=== PATIENT | female | born 1965 | race Hispanic/Latino ===

== ENCOUNTER 2022-05-31 17:52 | Inpatient (IN) | payer OTHER ==
[~2022-05-31] VITALS: Ht 149.9 cm; Wt 57.2 kg
[~2022-05-31 17:52] MED LIST: CEFD300C3 PO
[2022-05-31 18:45] LABS: BASOPHILS % (AUTO) 0.2 % (0.0-5.0); EOSINOPHILS % (AUTO) 0.2 % (0.0-8.0); HEMATOCRIT 37.5 % (36-48); LYMPHOCYTES % (AUTO) 4.2 % (21.0-51.0); MEAN CORPUSCULAR HEMOGLOBIN 31.4 pg (27.0-33.0); MEAN CORPUSCULAR HGB CONC 33.3 g/dL (32.0-36.0); MEAN CORPUSCULAR VOLUME 94.2 fL (79-99); NEUTROPHILS % (AUTO) 90.9 % (40.0-77.0); PLATELET COUNT (AUTO) 262 K/uL (130-400); RED BLOOD CELL COUNT(AUTO) 3.98 MIL/uL (4.00-5.50); RED CELL DISTRIBUTION WIDTH 12.8 % (11.0-15.5); WHITE BLOOD COUNT (AUTO) 18.1 K/uL (4.8-10.8)
[2022-05-31 18:55] LABS: CREATININE 0.9 mg/dL (0.5-1.5); POTASSIUM 3.9 mmol/L (3.5-5.1)
[2022-05-31 19:16] LABS: ALBUMIN 3.3 g/dL (3.5-5.0); TOTAL PROTEIN, SERUM 7.2 g/dL (6.0-8.3)
[2022-05-31 20:24] LABS: APPEARANCE,URINE CLEAR (CLEAR); BILIRUBIN,URINE NEGATIVE (NEGATIVE); COLOR,URINE YELLOW (YELLOW); GLUCOSE, URINE (UA) NEGATIVE (NEGATIVE); KETONES,URINE 40 mg/dL (NEGATIVE); LEUKOCYTE ESTERASE ,URINE 250 Leu/uL (NEGATIVE); NITRATE,URINE NEGATIVE (NEGATIVE); OCCULT BLOOD,URINE SMALL (NEGATIVE); PH,URINE 6.5 (5.0-8.0); PROTEIN,URINE 30 mg/dL (NEGATIVE); UROBILINOGEN,URINE 0.2 mg/dL (0.2-1.0)
[2022-05-31 20:29] LABS: BACTERIA,URINE RARE /HPF (None Seen); SQUAMOUS EPITHELIAL CELL,UR RARE /HPF (0-2); WBC,URINE 26-50 /HPF (0-1)
[2022-05-31] MEDS ORDERED: ONDANSETRON 4MG INJ IVP ONE (20:30)
[2022-05-31] MEDS ORDERED: 0.9%NACL 1000ML 1,000 ML IV SCH ×2 (20:30→23:00)
[2022-05-31] MEDS ORDERED: MORPHINE 4 MG SYG IVP ONE (20:30)
[2022-05-31] MEDS ORDERED: ACETAMINOPHEN 325 MG TAB PO PRN (23:00)
[2022-05-31] MEDS ORDERED: ONDANSETRON 4MG INJ IVP PRN (23:00)
[2022-05-31] MEDS ORDERED: LEVOFLOXACIN 500 MG/D5W 100 ML 100 ML IV SCH (23:00)
[2022-05-31] MEDS ORDERED: MORPHINE 2 MG SYG IVP PRN (23:00)
[2022-06-01] MEDS ORDERED: MORPHINE 2 MG SYG IVP PRN ×2 (05:00→09:00)
[2022-06-01] MEDS ORDERED: METRONIDAZOLE 250MG/50ML 50 ML IV SCH (06:00)
[2022-06-01] MEDS: LACTATED RINGERS 1000ML 1,000 ML IV SCH ×2 (08:29→17:06)
[2022-06-01] MEDS: FAMOTIDINE 20MG VIAL IV SCH ×2 (08:29→20:07)
[2022-06-01 08:45] VITALS: BP 142/73
[2022-06-01] MEDS ORDERED: TAMSULOSIN HCL 0.4 MG CAP.ER.24H PO SCH (09:00)
[2022-06-01] MEDS ORDERED: PANTOPRAZOLE 40 MG/VIAL IVP SCH (09:00)
[2022-06-01] MEDS ORDERED: ENOXAPARIN SODIUM 40 MG/0.4 ML SYRINGE SQ SCH (09:00)
[2022-06-01] MEDS ORDERED: ONDA-104 PO (09:02)
[2022-06-01] MEDS ORDERED: FLUO40CA49 PO (09:02)
[2022-06-01] MEDS ORDERED: ALPR0.5T8 PO (09:02)
[2022-06-01] MEDS ORDERED: CEFU500T67 PO (09:02)
[2022-06-01] MEDS ORDERED: TAMS-1 PO (09:02)
[2022-06-01] MEDS ORDERED: BUSP15TA3 PO (09:02)
[2022-06-01] MEDS: MEROPENEM 500 MG VIAL IVP SCH ×2 (09:30→17:05)
[2022-06-01] MEDS: ALPRAZOLAM 0.25 MG TABLET PO PRN ×2 (09:30→20:07)
[2022-06-01 09:34] LABS: BASOPHILS % (AUTO) 0.2 % (0.0-5.0); EOSINOPHILS % (AUTO) 0.1 % (0.0-8.0); HEMATOCRIT 37.1 % (36-48); LYMPHOCYTES % (AUTO) 9.1 % (21.0-51.0); MEAN CORPUSCULAR HEMOGLOBIN 31.4 pg (27.0-33.0); MEAN CORPUSCULAR HGB CONC 32.6 g/dL (32.0-36.0); MEAN CORPUSCULAR VOLUME 96.4 fL (79-99); MONOCYTES % (AUTO) 4.7 % (3.0-13.0); NEUTROPHILS % (AUTO) 85.2 % (40.0-77.0); PLATELET COUNT (AUTO) 250 K/uL (130-400); RED BLOOD CELL COUNT(AUTO) 3.85 MIL/uL (4.00-5.50); RED CELL DISTRIBUTION WIDTH 12.7 % (11.0-15.5); WHITE BLOOD COUNT (AUTO) 15.8 K/uL (4.8-10.8)
[2022-06-01 09:45] LABS: INR 1.02 (0.85-1.15); PROTHROMBIN TIME 11.1 SEC (9.6-11.6)
[2022-06-01 09:50] LABS: HEMOGLOBIN A1C 5.5 % (4.0-6.0)
[2022-06-01 10:38] LABS: CARBON DIOXIDE 22 mmol/L (21-32); CHLORIDE 103 mmol/L (101-111); CREATININE 0.6 mg/dL (0.5-1.5); GLOMERULAR FILTR. RATE CALC 109 mL/min (>60); GLUCOSE,RANDOM 91 mg/dL (70-105); POTASSIUM 3.7 mmol/L (3.5-5.1); SODIUM SERUM 138 mmol/L (136-145); UREA NITROGEN, BLOOD 10 mg/dL (7-18)
[2022-06-01 10:48] LABS: ASPARTATE AMINOTRANSFERASE 505 U/L (10-37); TOTAL PROTEIN, SERUM 6.9 g/dL (6.0-8.3)
[2022-06-01 10:55] LABS: SALICYLATE < 2.8 mg/dL (2.8-20.0)
[2022-06-01 10:56] LABS: ACETAMINOPHEN < 1 mcg/mL (10-30); ALANINE AMINOTRANSFERASE 980 U/L (12-78)
[2022-06-01 12:00] VITALS: BP 141/69
[2022-06-01] MEDS ORDERED: KETOROLAC 15MG/ML VIAL (15MG/ML) IV PRN (14:00)
[2022-06-01 16:00] VITALS: BP 140/74
[2022-06-01] MEDS ORDERED: PEG 3350/NA SULF,BICARB,CL/KCL 4000 ML SOLN PO STA (18:11)
[2022-06-01] MEDS ORDERED: MAGNESIUM 2GM PREMIX 50ML 50 ML IV PRN (18:30)
[2022-06-01 20:00] VITALS: BP 154/63
[2022-06-01] MEDS ORDERED: ONDANSETRON 4MG INJ ONE (20:16)
[2022-06-02] VITALS: BP 138/79
[2022-06-02] MEDS: MEROPENEM 500 MG VIAL IVP SCH ×3 (00:17→17:05)
[2022-06-02] MEDS ORDERED: ONDANSETRON 4MG INJ IVP PRN (01:00)
[2022-06-02 04:00] VITALS: BP 136/71
[2022-06-02 04:31] LABS: BASOPHILS % (AUTO) 0.5 % (0.0-5.0); EOSINOPHILS % (AUTO) 0.7 % (0.0-8.0); HEMATOCRIT 35.6 % (36-48); LYMPHOCYTES % (AUTO) 19.1 % (21.0-51.0); MEAN CORPUSCULAR HEMOGLOBIN 31.5 pg (27.0-33.0); MEAN CORPUSCULAR HGB CONC 33.7 g/dL (32.0-36.0); MEAN CORPUSCULAR VOLUME 93.4 fL (79-99); MONOCYTES % (AUTO) 8.6 % (3.0-13.0); NEUTROPHILS % (AUTO) 70.5 % (40.0-77.0); PLATELET COUNT (AUTO) 259 K/uL (130-400); RED BLOOD CELL COUNT(AUTO) 3.81 MIL/uL (4.00-5.50); RED CELL DISTRIBUTION WIDTH 12.5 % (11.0-15.5); WHITE BLOOD COUNT (AUTO) 10.6 K/uL (4.8-10.8)
[2022-06-02 04:53] LABS: INR 0.95 (0.85-1.15); PROTHROMBIN TIME 10.4 SEC (9.6-11.6)
[2022-06-02 04:55] LABS: PARTIAL THROMBOPLASTIN TIME 25.6 SEC (26.3-35.5)
[2022-06-02 05:18] LABS: ALBUMIN 2.9 g/dL (3.5-5.0); CREATININE 0.5 mg/dL (0.5-1.5); MAGNESIUM 2.1 mg/dL (1.80-2.40); POTASSIUM 3.6 mmol/L (3.5-5.1); TOTAL PROTEIN, SERUM 6.4 g/dL (6.0-8.3)
[2022-06-02] MEDS: LACTATED RINGERS 1000ML 1,000 ML IV SCH ×2 (06:17→17:09)
[2022-06-02 07:25] VITALS: BP 135/84
[2022-06-02] MEDS: FAMOTIDINE 20MG VIAL IV SCH ×2 (08:26→20:02)
[2022-06-02] MEDS: ALPRAZOLAM 0.25 MG TABLET PO PRN ×2 (10:45→20:02)
[2022-06-02 10:55] VITALS: BP 147/90
[2022-06-02] MEDS ORDERED: IOHEXOL 350 MG/ML 100ML INFUS..BTL IV ONE (13:06)
[2022-06-02 16:00] VITALS: BP 144/87
[2022-06-02] MEDS ORDERED: TAMSULOSIN HCL 0.4 MG CAP.ER.24H ONE (19:29)
[2022-06-02 20:00] VITALS: BP 124/69
[2022-06-02] MEDS: TAMSULOSIN HCL 0.4 MG CAP.ER.24H PO SCH (20:02)
[2022-06-02 20:22] LABS: HEPATITIS B SURFACE ANTIGEN Non-Reactive (Nonreactive)
[2022-06-02 20:23] LABS: HEPATITIS A IGM ANTIBODY Non-Reactive (Nonreactive); HEPATITIS B CORE IGM ANTIBODY Non-Reactive (Negative); HEPATITIS C ANTIBODY Non-Reactive (Nonreactive)
[2022-06-03] VITALS (14 sets, daily range): BP systolic 118–146; BP diastolic 56–81
[2022-06-03] MEDS: MEROPENEM 500 MG VIAL IVP SCH ×4 (00:12→23:49)
[2022-06-03] MEDS: LACTATED RINGERS 1000ML 1,000 ML IV SCH ×3 (00:12→19:30)
[2022-06-03 05:19] LABS: BASOPHILS % (AUTO) 0.5 % (0.0-5.0); EOSINOPHILS % (AUTO) 2.2 % (0.0-8.0); HEMATOCRIT 36.5 % (36-48); MEAN CORPUSCULAR HEMOGLOBIN 31.7 pg (27.0-33.0); MEAN CORPUSCULAR HGB CONC 33.7 g/dL (32.0-36.0); MEAN CORPUSCULAR VOLUME 94.1 fL (79-99); MONOCYTES % (AUTO) 10.1 % (3.0-13.0); NEUTROPHILS % (AUTO) 59.7 % (40.0-77.0); PLATELET COUNT (AUTO) 255 K/uL (130-400); RED BLOOD CELL COUNT(AUTO) 3.88 MIL/uL (4.00-5.50); RED CELL DISTRIBUTION WIDTH 12.3 % (11.0-15.5); WHITE BLOOD COUNT (AUTO) 7.4 K/uL (4.8-10.8)
[2022-06-03 05:35] LABS: INR 0.95 (0.85-1.15); PROTHROMBIN TIME 10.4 SEC (9.6-11.6)
[2022-06-03 05:53] LABS: CREATININE 0.6 mg/dL (0.5-1.5); POTASSIUM 3.7 mmol/L (3.5-5.1)
[2022-06-03] MEDS: ALPRAZOLAM 0.25 MG TABLET PO PRN ×2 (08:42→18:45)
[2022-06-03] MEDS: FAMOTIDINE 20MG VIAL IV SCH ×2 (08:42→19:33)
[2022-06-03] MEDS ORDERED: MIDAZOLAM HCL 1 MG/ML 2ML VIAL ONE (10:56)
[2022-06-03] MEDS ORDERED: IOHEXOL-350 50ML VIAL IV ONE (10:56)
[2022-06-03] MEDS ORDERED: FENTANYL CITRATE PF 50 MCG/1 ML 2ML VIAL ONE (10:56)
[2022-06-03] MEDS ORDERED: LIDOCAINE HCL 400MG/20ML VIAL ONE (10:57)
[2022-06-03] MEDS: TAMSULOSIN HCL 0.4 MG CAP.ER.24H PO SCH (19:33)
[2022-06-04 04:26] VITALS: BP 143/61
[2022-06-04] MEDS: LACTATED RINGERS 1000ML 1,000 ML IV SCH (04:47)
[2022-06-04 07:39] LABS: ALBUMIN 2.9 g/dL (3.5-5.0); CREATININE 0.6 mg/dL (0.5-1.5); POTASSIUM 3.4 mmol/L (3.5-5.1); TOTAL PROTEIN, SERUM 6.4 g/dL (6.0-8.3)
[2022-06-04 08:00] VITALS: BP 125/73
[2022-06-04] MEDS: FAMOTIDINE 20MG VIAL IV SCH (08:43)
[2022-06-04] MEDS: MEROPENEM 500 MG VIAL IVP SCH (08:43)
[2022-06-04] MEDS: ALPRAZOLAM 0.25 MG TABLET PO PRN (09:42)
[2022-06-04 10:11] LABS: HEMATOCRIT 37.1 % (36-48); MEAN CORPUSCULAR HEMOGLOBIN 31.3 pg (27.0-33.0); MEAN CORPUSCULAR VOLUME 92.3 fL (79-99); RED BLOOD CELL COUNT(AUTO) 4.02 MIL/uL (4.00-5.50); RED CELL DISTRIBUTION WIDTH 12.1 % (11.0-15.5); WHITE BLOOD COUNT (AUTO) 5.9 K/uL (4.8-10.8)
== END 2022-06-04 11:00 | disposition home or self-care (01) | DRG 689 ==
LOC: EDH 17:52 → EDHIP 06-01 04:40 → 4DH 06-01 08:42
PROVIDERS: ADMIT Internal Medicine; ATTEND Internal Medicine
PROC: 0T9130Z Drainage of Left Kidney with Drainage Device, Percutaneous Approach (ICD-10-PCS; principal; 2022-06-03)
DX: N13.6 Pyonephrosis (principal); E43 Unspecified severe protein-calorie malnutrition; Z20.822 Contact with and (suspected) exposure to COVID-19; E86.0 Dehydration; K52.9 Noninfective gastroenteritis and colitis, unspecified; K75.9 Inflammatory liver disease, unspecified; Z79.899 Other long term (current) drug therapy; Z82.49 Family history of ischemic heart disease and other diseases of the circulatory system; Z93.6 Other artificial openings of urinary tract status; Z90.49 Acquired absence of other specified parts of digestive tract; Z87.440 Personal history of urinary (tract) infections; Z87.442 Personal history of urinary calculi; Z68.25 Body mass index [BMI] 25.0-25.9, adult
CPT/HCPCS: 36415; 50432; 74176; 74400; 76705; 76770; 80048; 80053; 80074; 81001; 82550; 83036; 83605; 83690; 83735; 84145; 84443; 85025; 85027; 85610; 85651; 85730; 86140; 86701; 87040; 87071; 87088; 87205; 87390; 87635; 87804; 96361; 96374; 96375; 99156; C1729; C1894; C9803; G0378; G0481; J1644; J1650; J2185; J2250; J2270; J2405; J3010; J3475; J3490; J7120; Q9967

== ENCOUNTER 2022-11-28 08:51 | Day surgery (SDC) | payer OTHER ==
[2022-11-27 10:00] VITALS: BP 155/78
[~2022-11-28] VITALS: Ht 149.9 cm; Wt 58.5 kg
[~2022-11-28 08:51] MED LIST changes: +ALPR0.5T8 PO; +ASCO1TAB43 PO; +BACI1TAB3 PO; +BUSP15TA3 PO; -CEFD300C3 PO; +FLUO40CA49 PO; +MULT-660 PO; +VITAMIN B12 PO
[2022-11-28 10:26] VITALS: BP 109/56
[2022-11-28] MEDS ORDERED: 0.9%NACL 1000ML 1,000 ML IV ONE (10:54)
[2022-11-28 12:00] VITALS: BP 122/62
[2022-11-28] MEDS ORDERED: PROPOFOL 10 MG/ML 20ML VIAL IV ONE (12:40)
[2022-11-28] MEDS ORDERED: LIDOCAINE HCL 1% 20 ML VIAL ONE (12:40)
[2022-11-28 13:10] VITALS: BP 116/72
[2022-11-28 13:15] VITALS: BP 122/66
[2022-11-28 13:25] VITALS: BP 104/61
[2022-11-28 13:35] VITALS: BP 123/53
== END 2022-11-28 13:35 | disposition home or self-care (01) ==
LOC: ENDO 08:51 → DAH 08:51 → ENDO 13:35
PROVIDERS: ATTEND Internal Medicine Gastroenterology
DX: Z12.11 Encounter for screening for malignant neoplasm of colon (principal); Z20.822 Contact with and (suspected) exposure to COVID-19; K63.5 Polyp of colon; K57.30 Diverticulosis of large intestine without perforation or abscess without bleeding; K64.0 First degree hemorrhoids; R19.4 Change in bowel habit; F41.9 Anxiety disorder, unspecified; F32.A Depression, unspecified; M19.90 Unspecified osteoarthritis, unspecified site; E66.9 Obesity, unspecified; Z68.37 Body mass index [BMI] 37.0-37.9, adult; Z90.49 Acquired absence of other specified parts of digestive tract; Z98.890 Other specified postprocedural states
CPT/HCPCS: 87426; 84703; 36415; 45385; 81025; J7030 ×2; J2704; A4620; A4215 ×2; A4223; A4222; A4221; A4663; A4606

== ENCOUNTER 2024-09-04 14:08 | Emergency (ER) | payer OTHER ==
[2024-09-04] MEDS ORDERED: MUPI22OI2 TP (14:27)
[2024-09-04] MEDS ORDERED: SULF1TAB42 PO (14:27)
--- NOTE | 2024-09-04 15:10 | ERN ---
General Chief Complaint: FOOT INJURY/PAIN Stated Complaint: LEFT FOOT BLISTER Time Seen by MD: 14:15 Time Seen by Midlevel: 14:15 Source: patient History of Present Illness Initial Comments The patient is a 59-year-old female with no significant past medical history presenting to the emergency department for evaluation of a wound to her left foot. She was seen in our emergency department approximately two weeks ago for the same complaint. At that time she was told it was a work. However, over the last couple of days the wound is now open. She has been applying gentamicin/betamethasone/clotrimazole ointment with little to no relief. 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 Denies any other symptoms at this time Allergies: Coded Allergies: No Known Allergies (Unverified Allergy, Unknown, 10/01/16) Home Meds Active Scripts Sulfamethoxazole/Trimethoprim (Bactrim Ds Tablet) 800 Mg-160 Mg Tablet, 1 TAB PO BID for 7 Days, #14 TAB 0 Refills Prov:MARY JO WADE 09/04/24 Mupirocin (Mupirocin Ointment) 2 % Oint, 1 APPL TP TID for 7 Days, #22 GM 0 Refills apply to affected area(s) Prov:MARY JO WADE 09/04/24 Reported Medications Ascorbic Acid/Vitamin E/Biotin (Hair Skin Nails-Biotin Gummies) 1 Each Tab.chew, 1 EACH PO DAILY, TAB.CHEW 11/27/22 [Vitamin B12] No Conflict Check, 1000 MCG PO DAILY 11/27/22 Bacillus Coagulans (Probiotic) 1 Each Tab.chew, 1 EACH PO DAILY, TAB.CHEW 11/27/22 Multivitamin (Multivitamins) 1 Each Tablet, 1 EACH PO DAILY, TAB 11/27/22 Alprazolam (Alprazolam) 0.5 Mg Tablet, 0.5 MG PO TID PRN for ANXIETY/AGITATION, TAB 06/01/22 Fluoxetine HCl (Fluoxetine HCl) 40 Mg Capsule, 40 MG PO HS, CAP 06/01/22 Buspirone HCl (Buspirone HCl) 15 Mg Tablet, 15 MG PO BID, TAB 06/01/22 Past Medical History Past Medical History: Anxiety Past Surgical History: Cholecystectomy Social History Social History: Negative, Lives with family ROS Dictation CONSTITUTIONAL: Negative except for HPI HEAD/FACE: Negative except for HPI EENT: Negative except for HPI RESPIRATORY: Negative except for HPI GASTROINTESTINAL/ABDOMINAL: Negative except for HPI GENITOURINARY: Negative except for HPI MUSCULOSKELETAL: Negative except for HPI INTEGUMENTARY: Negative except for HPI NEUROLOGICAL/PSYCH: Negative except for HPI HEMATOLOGIC/LYMPHATIC: Negative except for HPI All Systems Negative, Except as noted above. 13 point review of systems assessed and all negative except for above. Physical Exam Physical Exam Dictation Vital Signs reviewed General Appearance: Alert, oriented x 3, no acute distress, well developed, nourished. Head and Face: non-traumatic. Eyes: PERRL, pink conjunctivas, eyelid no trauma, anterior chamber with arcus senilis. Ears: Pinnas intact and no signs of trauma or erythema ear canals clear and no discharge TM no erythema Nose: No discharge, no bleeding. Oropharynx: Mouth normal, tongue pink, pharynx clear,no erythema, tonsils no exudates, no abscesses noted, mucous membrane moist Neck: Supple, non-tender, no thyromegaly, no masses, no JVD, no bruits Breast:Deferred Chest:No tenderness, no crepitus, no paradoxical movement, no retractions Lungs:Clear, well-ventilated, symmetric, no rales, no wheezing, no rhonchi, no stridor, good breath sounds bilaterally Heart: Regular rate, regular rhythm, no murmur, no gallops Vascular: no peripheral edema, Abdomen: Soft, positive bowel sounds, nondistended, no guarding, nontender, no rebound, no masses no hepatomegaly, no splenomegaly, no Harris's sign, no hernias. Rectal: Deferred Genital: Deferred Neurological: Normal speech, motor function intact, sensory function intact Musculoskeletal: Neck nontender, full range of motion, back nontender, full range of motion, Extremities: nontender, full range of motion Skin: There is a 2 cm open wound to the plantar aspect of the left foot, the wound appears macerated, there is no surrounding erythema or induration. No drainable abscess Lymphatic: Deferred MDM MDM: Differential diagnosis: Diabetic foot ulcer, athlete's foot, laceration There are no social concerns with this patient. Prescription drug management Prescriptions will include: Bactrim, mupirocin ointment Medical management and examination interpretation discussions were had by me with other qualified healthcare professionals as indicated for the patient's care. ED Course Orders Procedure Category Date Status Time Ketorolac PHA 09/04/24 Complete Tromethamine 30mg/Ml 14:30 Mupirocin Ointment PHA 09/04/24 Complete (Bactroban Oint) 14:30 Current Medications Medications (Trade) Dose Ordered Sig/Stanley Route PRN Reason Start Time Stop Time Status Last Admin Dose Admin Ketorolac Tromethamine (toRADol) 30 mg ONCE ONCE IM 09/04/24 14:30 09/04/24 14:31 DC Mupirocin (Bactroban Oint) 1 APPL ONCE ONCE TP 09/04/24 14:30 09/04/24 14:31 DC DX & DISP Disposition: Discharge Departure Impression: Primary Impression: Blister of foot, left Condition: Stable Scripts Sulfamethoxazole/Trimethoprim (Bactrim Ds Tablet) 800 Mg-160 Mg Tablet 1 TAB PO BID for 7 Days, #14 TAB 0 Refills Prov: MARY JO WADE 09/04/24 Mupirocin (Mupirocin Ointment) 2 % Oint 1 APPL TP TID for 7 Days, #22 GM 0 Refills apply to affected area(s) Prov: MARY JO WADE 09/04/24 Referrals: ANAIS MARROQUIN MD (PCP) Time of Disposition: 15:09 I have reviewed the case, and I agree with, Diagnosis and Plan I performed the substantive portion of the visit. I have reviewed and p ersonally made and approve the management plan that is documented in the note by myself or the RE. I acknowledge for responsibility for the patient's management plan. MARY JO WADE Sep 04, 2024 15:10
[2024-09-04] MEDS: MUPIROCIN OINTMENT 22 GM TUBE TP ONE (15:20)
[2024-09-04] MEDS: ketOROlac 30MG VIAL (30MG/ML) IM ONE (15:23)
[2024-09-04 15:58] VITALS: BP 143/65; PULSE 64; RESP 16; TEMP 98.3; O2SAT 98
== END 2024-09-04 16:00 | disposition home or self-care (01) ==
LOC: EDH 14:08
DX: S90.822A Blister (nonthermal), left foot, initial encounter (principal); F41.9 Anxiety disorder, unspecified; Z79.899 Other long term (current) drug therapy; Z90.49 Acquired absence of other specified parts of digestive tract; X58.XXXA Exposure to other specified factors, initial encounter; Y93.89 Activity, other specified; Y92.89 Other specified places as the place of occurrence of the external cause; Y99.8 Other external cause status
CPT/HCPCS: 99283; 96372; J1885

== ENCOUNTER 2025-02-19 15:40 | Emergency (ER) | payer OTHER ==
[~2025-02-19] VITALS: Ht 149.9 cm; Wt 56.2 kg
[~2025-02-19 15:40] MED LIST changes: +ASCO1TAB PO; -ASCO1TAB43 PO; +MUPI22OI2 TP; +SULF1TAB42 PO
--- NOTE | 2025-02-19 15:44 | ERN ---
ED Note History of Present Illness Stated Complaint: BERNARDSADAF LLOYD, HEADACHE Chief Complaint: Multiple Complaints Time Seen by MD: 15:43 Time Seen by Midlevel: 15:43 Dictation: Ms. Johnston is a 59 year old female with histtory of anxiety who presents to the emergency department this afternoon for evaluation of headache. She reports 2- 3 days of posterior headache, photophobia, and phonophobia. Last night after working she states symptoms worsened and she was unable to go to work today. She states she now has nausea and general body weakness. She rates head headache 8/10. She states she took her medication for migraines earlier today; at 1100 with very minimal improvement. She states this is very similar to previous migraine headaches she has had. She denies fever, chills, shortness of breath, cough, chest pain, palpitations, edema, abdominal pain,vomiting, hematemesis, constipation, diarrhea, melena, hematochezia, dysuria, dizziness, or focal weakness/paresthesia Allergies: Coded Allergies: No Known Allergies (Unverified Allergy, Unknown, 10/01/16) Home Meds Active Scripts Sulfamethoxazole/Trimethoprim (Bactrim Ds Tablet) 800 Mg-160 Mg Tablet, 1 TAB PO BID for 7 Days, #14 TAB 0 Refills Prov:MARY JO WADE 09/04/24 Mupirocin (Mupirocin Ointment) 2 % Oint, 1 APPL TP TID for 7 Days, #22 GM 0 Refills apply to affected area(s) Prov:MARY JO WADE 09/04/24 Reported Medications Ascorbic Acid/Vitamin E/Biotin (Hair Skin Nails-Biotin Gummies) 1 Each Tab.chew, 1 EACH PO DAILY, TAB.CHEW 11/27/22 [Vitamin B12] No Conflict Check, 1000 MCG PO DAILY 11/27/22 Bacillus Coagulans (Probiotic) 1 Each Tab.chew, 1 EACH PO DAILY, TAB.CHEW 11/27/22 Multivitamin (Multivitamins) 1 Each Tablet, 1 EACH PO DAILY, TAB 11/27/22 Alprazolam (Alprazolam) 0.5 Mg Tablet, 0.5 MG PO TID PRN for ANXIETY/AGITATION, TAB 06/01/22 Fluoxetine HCl (Fluoxetine HCl) 40 Mg Capsule, 40 MG PO HS, CAP 06/01/22 Buspirone HCl (Buspirone HCl) 15 Mg Tablet, 15 MG PO BID, TAB 06/01/22 Past Medical History Past Medical History: Anxiety, Migraines Surgical History: Cholecystectomy Social History: Negative, Lives with family History: Not Applicable RN Note Reviewed/Agreed w/PFSH: Yes Review of System Dictation REVIEW OF SYSTEMS: CONSTITUTIONAL: Patient denies fevers, chills, sweats and weight changes. Reports general body weakness. EYES: Patient denies any visual symptoms. EARS, NOSE, AND THROAT: No difficulties with hearing. No symptoms of rhinitis or sore throat. CARDIOVASCULAR: Patient denies chest pains, palpitations, orthopnea and paroxysmal nocturnal dyspnea. RESPIRATORY: No dyspnea on exertion, no wheezing or cough. GI: No vomiting, hematemesis, diarrhea, constipation, abdominal pain, hematochezia or melena. Reports nausea. : No urinary hesitancy or dribbling. No nocturia or urinary frequency. No abnormal urethral discharge. MUSCULOSKELETAL: No myalgias or arthralgias. NEUROLOGIC: No seizures. Patient denies numbness, tingling or weakness. Reports headaches for 2-3 days. States she has history of migraine headaches. States she took her medication for migraine earlier today; at 1100. PSYCHIATRIC: Patient denies problems with mood disturbance. No problems with anxiety. ENDOCRINE: No excessive urination or excessive thirst. DERMATOLOGIC: Patient denies any rashes or skin changes. Initial Vital Sign VS Vital Signs Date Time Temp Pulse Resp B/P (MAP) Pulse Ox O2 Delivery O2 Flow Rate FiO2 02/19/25 15:40 97.9 83 16 127/61 100 Room Air* 0 21 Physical Exam Dictation Vital signs: Reviewed. Afebrile. Constitutional: uncomfortable. Head/Face: Normocephalic, atraumatic. Eyes: Periorbital areas with no swelling, redness, or edema. Lids and lashes are normal. Conjunctival injection is absent. Sclera anicteric. Pupils equal, round, reactive to light. + EOM ENT: Pinnas intact and no signs of trauma or erythema. Ear canals clear and no discharge. TMs no erythema. No nasal discharge or bleeding noted. Oropharynx with no exudate, redness, swelling, masses, exudates, or evidence of obstruction. Uvula midline. Mucous membranes moist. Neck: Trachea midline, no masses palpated, and no cervical lymphadenopathy. No swelling. Supple, full range of motion. Chest/Axilla: No tenderness, no crepitus, no paradoxical movement, no retractions. Cardiovascular: Regular rate, regular rhythm, no murmur, no gallops. Symmetric pulses. No peripheral edema. Normotensive. Respiratory: Respirations even and unlabored. Lung sounds clear; no wheezes, rales or rhonchi. Room air spo2 100%. Gastrointestinal: Inspection is normal. No distention is appreciated. Bowel sounds are normal. No mass or organomegaly . There is no tenderness. No rebound. No rigidity. No voluntary or involuntary guarding. No Harris's sign. Neurological: Normal speech, gross motor function intact, gross sensory function intact. No focal weakness/Paresthesia. Ambulates with steady gait. + photophobia. MURRAY pain 8/10 Musculoskeletal/Extremities: All extremities have full range of motion, no pain or tenderness on palpation. Symmetric pulses. Integumentary: Intact. Skin is normal color, warm and dry. Cap refill less than 2 seconds. ED Course ED Course Orders Procedure Category Date Status Time Ketorolac PHA 02/19/25 Complete Tromethamine 15mg/Ml 16:00 Metoclopramide 10 PHA 02/19/25 Complete Mg/2 Ml Vial (Reglan 1 16:00 Diphenhydramine Hcl PHA 02/19/25 Complete (Benadryl Inj) 16:00 0.9%Nacl 1000ml (Ns PHA 02/19/25 Complete 1000ml) 16:00 Current Medications Medications (Trade) Dose Ordered Sig/Stanley Route PRN Reason Start Time Stop Time Status Last Admin Dose Admin Diphenhydramine HCl (BENAdryl INJ) 25 mg ONCE ONCE IV 02/19/25 16:02/19/25 16:01 DC 02/19/25 16:26 Ketorolac Tromethamine (toRADol) 15 mg ONCE ONCE IV 02/19/25 16:02/19/25 16:01 DC 02/19/25 16:26 Metoclopramide HCl (regLAN 10MG IV) 10 mg ONCE ONCE IVP 02/19/25 16:02/19/25 16:01 DC 02/19/25 16:26 Sodium Chloride 1,000 ml @ 0 mls/hr ONCE ONCE IV 02/19/25 16:00 02/19/25 16:01 DC 02/19/25 16:26 Vital Signs Date Time Temp Pulse Resp B/P (MAP) Pulse Ox O2 Delivery O2 Flow Rate FiO2 02/19/25 15:41 97.0 83 16 127/61 100 Room Air 02/19/25 15:40 97.9 83 16 127/61 100 Room Air* 0 21 Uneventful ED course. Patient arrives with posterior headache with photophobia consistent with previous migraines. She received migraine cocktail: Toradol, Reglan, Benadryl, and NS 1000 mL IV as bolus. She states pain is resolved. She is anxious for discharge to home. Medical Decision Making MDM MDM: Differential diagnosis: Migraine headache, tension headache Rationale: Tests considered and ordered secondary to shared decision making in clude: Examination Previous outside records reviewed: Old ER visits. Risk of complication and/or morbidity or mortality of patient management: None Medications-Per medication reconciliation Need for hospitalization: Patient does not meet criteria for hospitalization. Need for emergency major/minor surgery: No There are no social concerns with this patient. Prescription drug management: None Prescriptions will include symptomatic care Patient's prior external medical records from other ER visits were reviewed by me as indicated. Prior testing and results from previous visits were reviewed. Prior tests were taken into account with medical decision making and resource utilization, independent historian/historians were used to obtain complete medical history. I independently interpreted the test that were performed, results were reviewed by me and considered findings on radiology if ordered. Medical management and examination interpretation discussions were had by me with other qualified healthcare professionals as indicated for the patient's care. DX & DISP Disposition: Discharge Departure Impression: Primary Impression: Migraine Additional Impression: Nausea Condition: Stable Additional Instructions: Rest in a quiet, dark room to reduce symptoms. Stay well hydrated and maintain regular meals and sleep schedules. Take your prescribed [id number] migraine medication at the 1st sign of headache, not after becomes swimming. Avoid known triggers if you are aware of them (such as certain foods, strong smells, skip meals, or lack of sleep). [id number] pain reliever such as Tylenol or ibuprofen a health if taken early. Avoid using these medications, as frequent use can lead to rebound headaches. Follow up with your primary care provider for ongoing migraine management, especially if your headaches are becoming more frequent or severe. Keep a headache diary to help identify triggers and treatment patterns. Preventive medications may be helpful if migraines are frequent. Return to the hospital immediately if you develop: Severe, sudden headache (worst headache of your life cool). A headache that is different from your usual migraines. Vision changes, weakness, numbness, trouble speaking, confusion, or fainting. Persistent vomiting, high fever, or stiff neck headache after head injury. Referrals: ANAIS MARROQUIN MD (PCP) Time of Disposition: 16:59 KATE CHRISTIANSON NP Feb 19, 2025 15:44
[2025-02-19] MEDS: 0.9%NACL 1000ML 1,000 ML IV ONE (16:26)
[2025-02-19 16:55] VITALS: BP 128/60; PULSE 78; RESP 17; TEMP 97; O2SAT 100
== END 2025-02-19 17:16 | disposition home or self-care (01) ==
LOC: EDH 15:40
DX: G43.909 Migraine, unspecified, not intractable, without status migrainosus (principal); R11.0 Nausea; F41.9 Anxiety disorder, unspecified; Z79.899 Other long term (current) drug therapy; Z90.49 Acquired absence of other specified parts of digestive tract
CPT/HCPCS: 99284; 96374; 96375; J1885; J1200; J7030; J2765